=== PATIENT | male | born 1955 | race Caucasian/White ===

== ENCOUNTER → 2019-03-19 10:05 | Outpatient (CLI) | payer OTHER, SELFPAY ==
[2019-03-19 12:32] LABS: Absolute Neutrophil Count 1.4 X10^3/uL (2.0-7.7); Basophil# 0.03 X10^3/uL; Eosinophil# 0.15 X10^3/uL; Eosinophils% 5.1 % (0-5); Hematocrit 45.6 % (40-54); Hemoglobin 15.4 g/dl (13.0-16.5); Mean Corp Hgb Conc 33.8 g/gl (32-36); Mean Corpuscular Hgb 31.3 pg (27.0-32.0); Mean Corpuscular Volume 92.7 fL (80-94); Mean Platelet Vol. 10.8 fl (6.2-12.0); Monocyte# 0.29 X10^3/uL; Monocyte% 9.8 % (0-10); Neutrophil % 47.1 % (47-70); Platelet Count 131 K/mm3 (150-450); RBC Distribution Width CV 13.6 % (11.6-14.6); RBC Distribution Width SD 45.9 fl (35.1-43.9); Red Blood Count 4.92 M/mm3 (4.6-6.2)
[2019-03-19 12:33] LABS: POSITIVE COUNT NO; POSITIVE DIFFERENTIAL NO; POSITIVE MORPHOLOGY NO
[2019-03-19 12:54] LABS: ALB/GLOB Ratio 1.2 RATIO (0.9-2.4); AST(SGOT) 21 U/L (15-37); Alanine Aminotransfer ALT/SGPT 27 U/L (16-61); Albumin, Serum 3.7 g/dL (3.2-5.0); Alkaline Phosphatase 80 U/L (45-117); Anion Gap 7 (5-15); BUN 10 mg/dL (7-18); BUN/Creat Ratio 10.7 RATIO (10-20); Calcium,Total 8.8 mg/dL (8.5-10.1); Chloride 106 mmol/L (98-107); Cholesterol 139 mg/dL (200); Creatinine, Serum 0.94 mg/dL (0.70-1.30); EST Glomerular Filtration Rate 87 mL/min (>60); Est Glom Filt Rate - Afr Amer 105 mL/min (>60); Globulin 3.1 g/dL (2.2-4.2); Glucose 90 mg/dL (74-106); High Density Lipoprotein 55 mg/dL; PSA,Total - Annual Screen 3.08 ng/mL (0.00-4.00); Potassium 4.5 mmol/L (3.5-5.1); Protein, Total 6.8 g/dL (6.4-8.2); Sodium Level 142 mmol/L (136-145); Thyroid Stim Hormone (TSH) 1.01 uIU/mL (0.358-3.74); Triglycerides 63 mg/dL; Very Low Density Lipoprotein 13 mg/dL (5-40)
== END ==
PROVIDERS: Family Provider Family Medicine; PCP Family Medicine; Referring Provider Family Medicine; Visit Provider Family Medicine
DX: Z00.00 Encounter for general adult medical examination without abnormal findings (principal); Z12.5 Encounter for screening for malignant neoplasm of prostate
CPT/HCPCS: 36415; 80053; 80061; 84153; 84443; 85025; G0103

== ENCOUNTER → 2020-02-11 11:17 | Outpatient (CLI) | payer OTHER, SELFPAY ==
[2020-02-11 12:47] LABS: Cholesterol 159 mg/dL (200); High Density Lipoprotein 42 mg/dL; Triglycerides 97 mg/dL; Very Low Density Lipoprotein 19 mg/dL (5-40)
== END ==
PROVIDERS: PCP Family Medicine; Referring Provider Family Medicine; Visit Provider Family Medicine
DX: E78.00 Pure hypercholesterolemia, unspecified (principal)
CPT/HCPCS: 36415; 80061

== ENCOUNTER 2020-05-28 23:10 | Emergency (ER) | payer OTHER, SELFPAY ==
[2020-05-28 23:11] VITALS: BP 130/86; PULSE 91; RESP 15; TEMP 36.2; O2SAT 96; BMI 21.4
--- NOTE | 2020-05-28 23:26 | ED.VIS.GEN ---
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 States that 2 weeks ago he was mowing his lawn felt a twinge just inferior lateral to the left scapula. Continue to bother him. Tonight he had a harsh cough and immediate increase in his pain. It has not subsided. Worse with touch movement and deep breath. Past Medical History - Allergies and Home Meds Allergies/Adverse Reactions: Allergies shrimp Adverse Reaction (Verified 05/28/20 23:16) Hives Primary Care Physician: Edmundo Alexandre MD [Primary Care Provider] - Review of Systems General: Denies: Chills, Fever, Sweats Eyes: Denies: Visual changes - bilaterally, Diplopia ENT: Denies: Rhinorrhea, Sore throat Cardiovascular: Denies: Chest pain, Palpitations Respiratory: Denies: Dyspnea, Cough, Dyspnea on exertion Gastrointestinal: Denies: Abdominal pain, Nausea, Vomiting, Diarrhea, Melena, Hematochezia Genitourinary: Denies: Dysuria, Hematuria, Frequency Musculoskeletal: Reports: Back pain - See history of present illness. Denies: Extremity Pain Skin: Denies: Rash, Wounds Neurological: Denies: Headache, Weakness, Numbness Physical Exam Vital Signs/Narrative: Vital Signs Temp Pulse Resp BP Pulse Ox 05/28/20 23:11 97.2 F L 91 15 130/86 H 96 Inital Vital Signs reviewed: Yes General: Well nourished, Well developed, No Acute Distress Head: Normocephalic, Atraumatic Eyes: Perrl, EOMI ENT: Moist mucous membranes, No rhinorrhea Neck: Supple, Nontender Cardiovascular: Regular rate, Regular rhythm, No murmurs Respiratory: No distress, CTA bilaterally, Chest tenderness - Patient has focal tenderness along rib just inferior lateral to the left scapula. There is no ecchymosis. Abdomen: Soft, Nontender, Nondistended, Normal bowel sounds Back: Nontender, Normal Inspection Extremities: Nontender, No edema Skin: Normal color, No rash Neurological: Alert, Oriented x3, Cranial nerves II-XII grossly intact, Normal Strength, Normal Sensation Psychological: Normal affect, Normal Mood Diagnostic/Tx/Re-eval Laboratory Last Values WBC 4.6 K/mm3 (4.4-11.0) 05/29/20 00:15 RBC 4.07 M/mm3 (4.6-6.2) L 05/29/20 00:15 Hgb 12.1 g/dL (13.0-16.5) L 05/29/20 00:15 Hct 39.3 % (40-54) L 05/29/20 00:15 MCV 96.6 fL (80-94) H 05/29/20 00:15 MCH 29.7 pg (27.0-32.0) 05/29/20 00:15 MCHC 30.8 g/dL (32-36) L 05/29/20 00:15 RDW Std Deviation 56.9 fl (35.1-43.9) H 05/29/20 00:15 RDW Coeff of Luan 16.1 % (11.6-14.6) H 05/29/20 00:15 Plt Count 112 K/mm3 (150-450) L 05/29/20 00:15 MPV 10.2 fl (6.2-12.0) 05/29/20 00:15 Immature Gran % (Auto) 0.200 % (0.0-0.9) 05/29/20 00:15 Neut % (Auto) 72.3 % (47-70) H 05/29/20 00:15 Lymph % (Auto) 12.7 % (19-41) L 05/29/20 00:15 [place] % (Auto) 9.5 % (0-10) 05/29/20 00:15 Eos % (Auto) 4.7 % (0-5) 05/29/20 00:15 Baso % (Auto) 0.6 % (0-1) 05/29/20 00:15 Absolute Neuts (auto) 3.4 X10^3/uL (2.0-7.7) 05/29/20 00:15 Absolute Lymphs (auto) 0.59 X10^3/uL (0.83-4.51) L 05/29/20 00:15 Nucleated RBC % 0 % (0-5) 05/29/20 00:15 Clinical Impression(s) from Imaging Studies Chest CT 05/28/20 23:27 IMPRESSION: Heterogeneous attenuation to some of the osseous structures. There is a sclerotic lesion within the T6 vertebral body involving the majority of the vertebral body and extending into the posterior elements. Compatible with metastatic lesion. Additional smaller areas are noted within the osseous structures. This could be further evaluated with either MRI or bone scan. Nonemergent basis. There is heterogeneity involving the lateral aspect of the right fourth rib. Concerning for metastatic lesion. There is a small lucency which may represent a pathologic fracture. Cholelithiasis. There is gallbladder wall mild thickening with some adjacent minimal stranding. Recommend gallbladder ultrasound to evaluate for acute cholecystitis. Heterogeneity and low-attenuation structures within the liver concerning for metastatic disease. Evaluation limited by lack of IV contrast. Upper abdominal lymphadenopathy. Additional lymph nodes within the mediastinum and hilar regions. Given patient''s history this would be concerning for metastatic disease. No prior imaging available for comparison. Small left pleural effusion. Small pulmonary nodules are present. No prior imaging is available for comparison. Recommend correlation with prior imaging for stability. Metastatic disease would not be excluded. There is some mild esophageal wall thickening noted distally. There is some metallic likely postsurgical clips within the region. This may be postsurgical however recurrent or residual neoplasm is not excluded and recommend comparison to prior imaging. Other findings as discussed above. Electronically Signed: Cheo Rae, at 0:29 EDT Tel , Service support , - Medical Decision Making Using online resources I see the patient had a CBC drawn on . White count 2.5, hemoglobin 11.2 and platelets of 98. On May 03 the patient had a CT of his chest did not demonstrate any effusion on the left. Today's CBC shows a white count of 4.6, hemoglobin 12.1 and platelets are 112. I reviewed the CT read by radiology. In the area where the patient hurts there appears to be a fracture of her rib. And given that there is a fusion was not present 1 month ago concerned this may be a small hemothorax. I spoke with the patient and his at length. He will be discharged home as he otherwise appears stable. He is to keep an eye on his breathing if he has any concerns he should return to the emergency department ED Disposition - Plan for ED Patient: Disposition: Home or Assisted Living Diagnosis: Left rib fracture, Hemothorax, left Instructions: ED Rib Fx Prescriptions: Oxycodone [Oxyir] 5 mg PO Q6H PRN PRN 5 Days #20 tab PRN Reason: Pain Prescription Printed Referrals: Edmundo Alexandre MD [Primary Care Provider] - As Needed Additional Instructions: As discussed I feel you have a new rib fracture on the left. There appears to be a new pleural effusion which is most likely blood. Please keep an eye on your breathing this weekend. If you feel it is getting worse or your pain is worse we have any concerns please return to the emergency department. Please take a copy of your labs and your CT to your oncologist.
--- NOTE | 2020-05-28 23:27 | CT_ITS ---
STUDY: CT CHEST WITHOUT CONTRAST REASON FOR EXAM: Male, 64 years old. LT POSTERIOR CHEST PAIN TONIGHT AFTER HARSH COUGH,LT SIDED PAIN AFTER MOWING 2 WEEKS AGO -- Hx: esophageal CANCER WITH METS RADIATION DOSAGE (If Supplied By Facility): CTDIvol = ( 13.51 ) mGy, DLP = ( 598.65 ) mGycm TECHNIQUE: Transaxial imaging was performed without the administration of intravenous contrast material. Individualized dose optimization techniques were used for this CT. COMPARISON: None. FINDINGS: There is a left chest Port-A-Cath with the tip in the SVC. 3 mm right lower lobe pulmonary nodule. 3 mm pulmonary nodule along the right fissure. Additional to 3 mm multiple nodules along the right fissure. 3 mm right lower lobe pulmonary nodule. Mild emphysematous changes. There is no pneumothorax present. There are few to 3 mm nodularities along the left fissure. Left lingula 5 mm nodule. Left lower lobe 3 mm pulmonary nodule. There is some atelectasis/scarring within the lungs. There is small left pleural effusion. Metallic structures at the distal esophagus. There is a small hiatal hernia. There is some areas of esophageal wall thickening. There is gaseous distention of the upper esophagus. There are subcentimeter short axis nonspecific mediastinal and hilar lymph nodes. There is a 1 cm short axis subcarinal lymph node. There is atherosclerotic disease of the aorta. Cannot evaluate for dissection or pulmonary embolism due to lack of IV contrast. The heart is within normal limits in size. Coronary artery calcifications. No significant pericardial effusion. There are multi-level degenerative changes of the thoracic spine. Heterogeneous sclerotic structures are present. There is a T6 metastatic lesion with extension into the posterior elements. Additional smaller areas are present. Right lateral fourth rib heterogeneity with small lucency which may represent a pathologic fracture. Old left rib fractures. Cholelithiasis. This could be further evaluated with gallbladder ultrasound. There is stranding and thickening of the gallbladder wall. Findings suggest possible acute cholecystitis. There is nonspecific mesenteric root stranding. There is upper abdominal lymphadenopathy measuring up to 1.1 x 2 cm. There is heterogeneous appearance to the liver with multiple low-attenuation areas concerning for possible metastatic disease. Some calcification seen within the left hepatic lobe. Largest area of decreased heterogeneous attenuation within the right hepatic lobe is measuring [address]/Chest without Contrast IMPRESSION: Heterogeneous attenuation to some of the osseous structures. There is a sclerotic lesion within the T6 vertebral body involving the majority of the vertebral body and extending into the posterior elements. Compatible with metastatic lesion. Additional smaller areas are noted within the osseous structures. This could be further evaluated with either MRI or bone scan. Nonemergent basis. There is heterogeneity involving the lateral aspect of the right fourth rib. Concerning for metastatic lesion. There is a small lucency which may represent a pathologic fracture. Cholelithiasis. There is gallbladder wall mild thickening with some adjacent minimal stranding. Recommend gallbladder ultrasound to evaluate for acute cholecystitis. Heterogeneity and low-attenuation structures within the liver concerning for metastatic disease. Evaluation limited by lack of IV contrast. Upper abdominal lymphadenopathy. Additional lymph nodes within the mediastinum and hilar regions. Given patient''s history this would be concerning for metastatic disease. No prior imaging available for comparison. Small left pleural effusion. Small pulmonary nodules are present. No prior imaging is available for comparison. Recommend correlation with prior imaging for stability. Metastatic disease would not be excluded. There is some mild esophageal wall thickening noted distally. There is some metallic likely postsurgical clips within the region. This may be postsurgical however recurrent or residual neoplasm is not excluded and recommend comparison to prior imaging. Other findings as discussed above. Electronically Signed: Cheo Rae, at 0:29 EDT Tel , Service support ,
[2020-05-28] MEDS: oxyCODONE 5 MG Tablet 10 MG PO (23:35)
[2020-05-29 00:24] LABS: Absolute Lymphocyte Count 0.59 X10^3/uL (0.83-4.51); Absolute Neutrophil Count 3.4 X10^3/uL (2.0-7.7); Basophil# 0.03 X10^3/uL; Basophil% 0.6 % (0-1); Eosinophil# 0.22 X10^3/uL; Eosinophils% 4.7 % (0-5); Hematocrit 39.3 % (40-54); Hemoglobin 12.1 g/dL (13.0-16.5); Lymphocyte # 0.59 X10^3/ul (4.0); Lymphocyte % 12.7 % (19-41); Mean Corp Hgb Conc 30.8 g/dL (32-36); Mean Corpuscular Hgb 29.7 pg (27.0-32.0); Mean Corpuscular Volume 96.6 fL (80-94); Mean Platelet Vol. 10.2 fl (6.2-12.0); Monocyte# 0.44 X10^3/uL; Monocyte% 9.5 % (0-10); NRBC Flagged by Analyzer 0 % (0-5); Neutrophil # 3.35 X10^3/uL (2.7-7.7); Neutrophil % 72.3 % (47-70); POSITIVE DIFFERENTIAL YES; Platelet Count 112 K/mm3 (150-450); RBC Distribution Width CV 16.1 % (11.6-14.6); RBC Distribution Width SD 56.9 fl (35.1-43.9); Red Blood Count 4.07 M/mm3 (4.6-6.2); White Blood Count 4.6 K/mm3 (4.4-11.0)
[2020-05-29 00:25] LABS: Differential Indicated SCAN CRITERIA MET
[2020-05-29 00:48] VITALS: PULSE 88; RESP 16; O2SAT 97
== END 2020-05-29 00:49 | disposition home or self-care (01) ==
PROVIDERS: Emergency Provider Emergency Medicine; PCP Family Medicine
DX: S22.32XA Fracture of one rib, left side, initial encounter for closed fracture (principal); J94.2 Hemothorax; Y93.H2 Activity, gardening and landscaping
CPT/HCPCS: 71250; 85025; 99283

== ENCOUNTER 2020-07-03 14:15 | Emergency (ER) | payer OTHER, SELFPAY ==
[2020-07-03 14:16] VITALS: BP 159/89; PULSE 110; RESP 17; TEMP 37.2; O2SAT 99; BMI 19.5
--- NOTE | 2020-07-03 14:44 | CT_ITS ---
STUDY: CTA CHEST REASON FOR EXAM: Male, 65 years old. SHORTNESS OF BREATH, HX ESOPHAGEAL CA RADIATION DOSAGE (If Supplied By Facility): CTDIvol = ( 7.67 ) mGy, DLP = ( 239.52 ) mGycm TECHNIQUE: The examination was performed with the intravenous administration of IV 75mL [id number]-370. Post-processing of the angiographic images was performed, with multiplanar reformation and 3D reconstruction. Individualized dose optimization techniques were used for this CT. COMPARISON: Chest CT 05/28/2020 FINDINGS: Left chest port is stable. Normal enhancement of the main pulmonary artery and right and left pulmonary arteries. Normal enhancement of the bilateral peripheral pulmonary arteries. There is no demonstrated pulmonary embolism. There is atherosclerosis of the thoracic aorta. There is no demonstrated aortic dissection. Normal heart and pericardium. There are calcifications of the coronary arteries. There are surgical clips adjacent to the lower esophagus with apparent distal esophageal wall thickening, likely correlating to patient''s known history of esophageal carcinoma. There is an enlarged lymph node of the superior mediastinum posterior to the trachea measuring 1.6 cm which is new since the prior study. Normal hilar regions. Normal visualized trachea and bronchi. The lungs are well expanded. There are mild fibrotic changes of the lungs but no discrete parenchymal nodule or mass. Normal pleura. There is a 3.7 x 5.1 cm soft tissue mass arising from the left fifth posterolateral rib correlating to lytic lesion noted on x-ray from earlier today. A subtle fracture and lytic lesion evident on prior study of image 41, however, the soft tissue mass is certainly worse since the prior study. Sclerotic lesion of T6 is stable. There are old left rib fractures. Sclerotic lesion of the posterior inferior L1 vertebral body is also stable. There are multiple gallstones. There is adenopathy of the upper abdomen adjacent to the pancreatic head including 1.8 x 3.3 cm lymph node on image 15 of series 2, mildly larger since the prior study (previously measured 1.5 x 2.4 cm). Persistent heterogeneity of the liver with multiple small low-density lesions worrisome for metastatic deposits are grossly similar accounting for arterial phase imaging. CT/CTA Chest W/WO Contrast IMPRESSION: 1. No central or segmental pulmonary embolism. 2. Distal esophageal wall thickening likely correlates to patient''s known esophageal neoplasm. 3. Expansile soft tissue mass/lytic lesion of left fifth rib, significantly worse since prior CT (barely perceptible on prior exam). Stable thoracic/lumbar vertebral body lesion. Hepatic metastasis suspected. 4. Superior mediastinal adenopathy, new since the prior study worrisome for additional metastasis. Electronically Signed: Chung Diamond MD ([place]) at 16:22 EDT , Service support ,
--- NOTE | 2020-07-03 14:44 | EKG12_ITS ---
Test Reason : Blood Pressure : / mmHG Vent. Rate : 107 BPM Atrial Rate : 107 BPM P-R Int : 118 ms QRS Dur : 070 ms QT Int : 328 ms P-R-T Axes : 069 062 049 degrees QTc Int : 437 ms Sinus tachycardia Otherwise normal ECG Confirmed by JERI OSBORNE, BETHANY ([id number]), photograph editor MACKENZIE ALEX ([id number]) on 07/05/2020 9:00:13 AM Referred By: Confirmed By:BETHANY WILCOX MD
[2020-07-03 15:06] LABS: Absolute Lymphocyte Count 0.64 X10^3/uL (0.83-4.51); Absolute Neutrophil Count 10.7 X10^3/uL (2.0-7.7); Basophil# 0.04 X10^3/uL; Basophil% 0.3 % (0-1); Eosinophil# 0.04 X10^3/uL; Eosinophils% 0.3 % (0-5); Hemoglobin 11.8 g/dL (13.0-16.5); Lymphocyte # 0.64 X10^3/ul (4.0); Lymphocyte % 5.2 % (19-41); Mean Corp Hgb Conc 31.1 g/dL (32-36); Mean Corpuscular Hgb 26.8 pg (27.0-32.0); Mean Corpuscular Volume 86.2 fL (80-94); Mean Platelet Vol. 9.6 fl (6.2-12.0); Monocyte# 0.77 X10^3/uL; Monocyte% 6.3 % (0-10); NRBC Flagged by Analyzer 0 % (0-5); Neutrophil # 10.67 X10^3/uL (2.7-7.7); Neutrophil % 87.4 % (47-70); Platelet Count 212 K/mm3 (150-450); RBC Distribution Width CV 15.6 % (11.6-14.6); RBC Distribution Width SD 49.2 fl (35.1-43.9); Red Blood Count 4.41 M/mm3 (4.6-6.2); White Blood Count 12.2 K/mm3 (4.4-11.0)
--- NOTE | 2020-07-03 15:14 | RAD_ITS ---
STUDY: X-RAY CHEST REASON FOR EXAM: Male, 65 years old. chest pain and weakness. currently has stage 4 esophageal cancer. TECHNIQUE: AP COMPARISON: None. FINDINGS: Left chest port identified. There is a destructive process involving the posterior left fifth rib (just lateral to the port hub) measuring approximately 2.7 cm. The lungs are clear and expanded. There is no demonstrated pleural abnormality. Normal size heart. Normal mediastinum and naima. Normal visualized pulmonary arteries. Normal visualized aortic arch and descending thoracic aorta. Poorly visualized thoracic spine. There is no demonstrated abnormality of the visualized soft tissue structures of the upper abdomen. RAD/Chest 1 View (Portable) IMPRESSION: 1. No acute cardiopulmonary process. 2. Destructive/lytic lesion of the left posterior fifth rib suggesting metastatic deposit/neoplasm. Electronically Signed: Chung Diamond MD ([place]) at 15:46 EDT , Service support ,
[2020-07-03 15:19] VITALS: O2SAT 100
[2020-07-03 15:26] LABS: Anion Gap 7 (5-15); BUN 10 mg/dL (7-18); BUN/Creat Ratio 14.7 RATIO (10-20); Calcium,Total 7.3 mg/dL (8.5-10.1); Chloride 98 mmol/L (98-107); Creatinine, Serum 0.68 mg/dL (0.70-1.30); EST Glomerular Filtration Rate 125 mL/min (>60); Est Glom Filt Rate - Afr Amer 151 mL/min (>60); Estimated Creatinine Clearance 100.02 ml/min; Glucose 113 mg/dL (74-106); Potassium 4.4 mmol/L (3.5-5.1); Sodium Level 128 mmol/L (136-145)
--- NOTE | 2020-07-03 15:26 | ED.VIS.GEN ---
History of Present Illness Chief Complaint: Weakness Informant: Patient Narrative: 65-year-old male presenting for evaluation because he has episodes of what sounds like panic. He states that he will get up out of bed and feel fine and then you will feel a big urge to get up and pace. He will do this for a while and then lay down. When he lays down this calms him down and he feels better. His is upset because he is laying down a lot. Patient has history of stage IV esophageal cancer and is on immunotherapy. He does not get radiation therapy. He is on morphine and oxycodone. He states he is not having any pain. He does not specifically say short of breath is much as he just seems agitated. Patient is not anticoagulated. Patient states that he does not know what to do. He did not call his supervisor [employer] or his PCP. He has been having this going on for a few days. Past Medical History - Allergies and Home Meds Allergies/Adverse Reactions: Allergies shrimp Adverse Reaction (Verified 05/28/20 23:16) Hives Primary Care Physician: Edmundo Alexandre MD [Primary Care Provider] - Prior records reviewed: Yes Lives: Spouse/ Significant Other Smoking Status: Former smoker Alcohol: None Drugs: None Review of Systems General: Denies: Chills, Fever, Sweats Eyes: Denies: Visual changes - bilaterally, Diplopia ENT: Denies: Rhinorrhea, Sore throat Cardiovascular: Reports: Heart racing. Denies: Chest pain Respiratory: Denies: Dyspnea, Cough, - Gastrointestinal: Denies: Abdominal pain, Nausea Genitourinary: Denies: Dysuria Musculoskeletal: Denies: Myalgias, Arthralgias Skin: Denies: Rash, Abscess Psych: Reports: Anxiety. Denies: Suicidal thoughts, Suicidal ideations Hematologic: Denies: Easy bruising, Easy bleeding Physical Exam Vital Signs/Narrative: Vital Signs Temp Pulse Resp BP Pulse Ox 07/03/20 15:19 100 07/03/20 14:16 98.9 F 110 H 17 159/89 H 99 Inital Vital Signs reviewed: Yes General: Well developed, Cachectic Head: Normocephalic Eyes: Perrl, EOMI ENT: Moist mucous membranes Cardiovascular: No murmurs, Tachycardia Respiratory: No distress, CTA bilaterally Abdomen: Soft Extremities: Nontender, No edema Skin: Normal color, No rash Neurological: Alert, Oriented x3 Psychological: Normal affect Diagnostic/Tx/Re-eval Clinical Impression(s) from Imaging Studies Chest CTA 07/03/20 14:44 IMPRESSION: 1. No central or segmental pulmonary embolism. 2. Distal esophageal wall thickening likely correlates to patient''s known esophageal neoplasm. 3. Expansile soft tissue mass/lytic lesion of left fifth rib, significantly worse since prior CT (barely perceptible on prior exam). Stable thoracic/lumbar vertebral body lesion. Hepatic metastasis suspected. 4. Superior mediastinal adenopathy, new since the prior study worrisome for additional metastasis. Electronically Signed: Chung Diamond MD ([place]) at 16:22 EDT , Service support , Chest X-Ray 07/03/20 15:14 IMPRESSION: 1. No acute cardiopulmonary process. 2. Destructive/lytic lesion of the left posterior fifth rib suggesting metastatic deposit/neoplasm. Electronically Signed: Chung Diamond MD ([place]) at 15:46 EDT , Service support , Laboratory Data 07/03/20 07/03/20 14:58 14:58 WBC 12.2 H RBC 4.41 L Hgb 11.8 L Hct 38.0 L MCV 86.2 MCH 26.8 L MCHC 31.1 L RDW Std Deviation 49.2 H RDW Coeff of Luan 15.6 H Plt Count 212 MPV 9.6 Immature Gran % (Auto) 0.500 Neut % (Auto) 87.4 H Lymph % (Auto) 5.2 L [place] % (Auto) 6.3 Eos % (Auto) 0.3 Baso % (Auto) 0.3 Absolute Neuts (auto) 10.7 H Absolute Lymphs (auto) 0.64 L Nucleated RBC % 0 Sodium 128 L Potassium 4.4 Chloride 98 Carbon Dioxide 23.0 Anion Gap 7 BUN 10 Creatinine 0.68 L Estim Creat Clear Calc 100.02 Est GFR (MDRD) Af Amer 151 Est GFR (MDRD) Non-Af 125 BUN/Creatinine Ratio 14.7 Glucose 113 H Calcium 7.3 L Troponin I < 0.015 - Rhythm Strip Rhythm Strip: Sinus Rhythm Rate: 107 - EKG Initial EKG Interpretation: Sinus Tachycardia - Medical Decision Making Patient was seen and evaluated on arrival for episodes which sound like anxiety attacks. He states that when he lays down and relaxes he feels much better. He is on medication for anxiety but he states it is actually to help him eat. His is concerned that he is not eating as much as he should be because he is not hungry. He states that he does have known metastasis of his esophageal cancer. He has no history of DVT/PE but given his episodes I did CTA his chest and this is negative. His EKG is sinus rhythm although slightly tachycardic there is no ischemic pathology. His blood work does show a slight leukocytosis at 12K, he does have hyponatremia at 128 and was given some IV fluids. His calcium is slightly lower than usual. I do not believe these require him to be admitted to the hospital. He was ambulatory in the ED with a stable gait was able to go to the restroom. He is not confused he has no dizziness. still expresses her concern that he is not eating as much as he should, and I recommended that he follow-up with her supervisor [employer] as he is the one prescribed a medication to help him eat. He then stated he ate a bowl of soup before he came to the ER. I think he will be amenable for outpatient follow-up. He does agree. I did review the findings on the CTA with him as far as the metastasis and he states that these are known areas of metastasis that he had imaged at [facility] previously. Not appear to be any acute changes based on his description and on the read I can see online. Patient will be discharged home in stable condition. Impression: 1 generalized weakness 2. Hyponatremia 3. Hypocalcemia 4. Leukocytosis 5. History of esophageal cancer ED Disposition - Plan for ED Patient: Disposition: Home or Assisted Living Instructions: Hypocalcemia, ED Hyponatremia, ED Weakness [facility] Referrals: Edmundo Alexandre MD [Primary Care Provider] -
[2020-07-03 16:19] VITALS: BP 123/68; PULSE 103; RESP 20; O2SAT 99
[2020-07-03 17:03] VITALS: BP 138/92; PULSE 90; RESP 16; O2SAT 98
== END 2020-07-03 17:03 | disposition home or self-care (01) ==
PROVIDERS: Emergency Provider Student in an Organized Health Care Education/Training Program; PCP Family Medicine
DX: R53.1 Weakness (principal); E87.1 Hypo-osmolality and hyponatremia; E83.51 Hypocalcemia; D72.829 Elevated white blood cell count, unspecified; Z87.891 Personal history of nicotine dependence; Z85.01 Personal history of malignant neoplasm of esophagus
CPT/HCPCS: 71045; 71275; 80048; 84484; 85025; 93005; 96360; 99285; J7030; Q9967; A4216